=== PATIENT | male | born 1945 | race Caucasian/White ===

== ENCOUNTER → 2018-07-09 09:08 | Outpatient (CLI) | payer OTHER ==
--- NOTE | ~2018-07-09 | ST ---
PATIENT:VENU YATES MEDICAL RECORD: [id number] SEX: M LOCATION:[facility] ORDER #: ADMISSION DATE: 07/09/18 AGE OF PATIENT: 72 REFERRING PHYSICIAN: INTERPRETING PHYSICIAN: FIOR MERCADO MD DATE OF SERVICE: 07/09/2018 PROCEDURE: Nuclear stress test. INDICATION: Angina, coronary artery disease, shortness of breath, hypertension, and hyperlipidemia. DESCRIPTION: He was exercised on standard Lexiscan protocol with 27 mCi injected at peak stress, 9 mCi of sestamibi were injected previously for rest images. FINDINGS: Gated SPECT reveals a preserved ejection fraction of 59% with decreased thickening and brightening throughout the inferior segments. SPECT imaging: Cardiolite was used as myocardial fusion agent. There is a mixed perfusion defect inferiorly and apically. This is a partially fixed, partially reversible includes the basal, mid apical inferior segments as well as the apex itself. The remaining segments are with homogeneous uptake at rest and stress. OVERALL IMPRESSION: 1. This is an abnormal nuclear stress test with a mixed perfusion defect partially fixed, partially reversible throughout the inferior and apical segments. 2. Gated SPECT reveals preserved ejection fraction at 59%. In this patient with ongoing symptomatology, the current scan does suggest the presence of hemodynamically significant coronary artery disease. We will proceed with coronary angiography as followup study. TRANSINT:[id number] Voice Confirmation ID: [id number] DOCUMENT ID: [id number] FIOR MERCADO MD CC: [id number] DICTATION DATE: 07/10/18 1424 PAPER CONE MACHINE OPERATOR: 07/11/18 0131 DEP CLI 07/09/18 [facility] [address] [id number]
== END | disposition home or self-care (01) ==
LOC: D.HCCARDIO 09:08
DX: I25.10 Atherosclerotic heart disease of native coronary artery without angina pectoris (principal)

== ENCOUNTER 2018-07-24 08:59 | Outpatient (CLI) | payer OTHER ==
[~2018-07-24] VITALS: Ht 175.3 cm; Wt 113.6 kg
--- NOTE | ~2018-07-24 | HEMODYNAMI ---
PATIENT:VENU YATES MEDICAL RECORD: [id number] : 47 LOCATION:[facility] ADMISSION DATE: 07/24/18 Generatedon:07/24/201811:51 Patient name: VENU YATES Patient #: [id number] SSN: : 1945 Date of study: 07/24/2018 Page: Of Hemodynamic Procedure Report Patient Data Patient Demographics Procedure consent was obtained First Name: VENU Gender: Male Last Name: MILAN : 1945 Patient #: [id number] Age: 72 year(s) Race: Unknown Additional ID: [id number] Contact details [address]: [address] [place] [address] State: [place] City: [place] Zip code: [address] Admission Admission Data Admission Date: 07/24/2018 Admission Time: 8:59 Procedure Procedure Types Cath Procedure Diagnostic Procedure LHC LHC w/Coronaries w/Grafts Sedation Charges Moderate Sedation up to 15 minutes Procedure Description Procedure Date Procedure Date: 07/24/2018 Procedure Start Time: 11:37 Procedure End Time: 11:46 Procedure Staff Name Function Akin Doan MD Performing Physician Shira Heart RT Monitor Shaan Brand RT Scrub Rubén Peng RN Nurse Timothy Pham RN Ad Operations Specialist Procedure Data Cath Procedure Fluoroscopy Diagnostic fluoroscopy Total fluoroscopy Time: 3.6 time: 3.6 min min Diagnostic fluoroscopy Total fluoroscopy dose: 844 dose: 844 mGy mGy Contrast Material Contrast Material Type Amount (ml) Isovue 300 95 Entry Location Entry Primary Successful Side Size Upsize Upsize Entry Closure Succes sful Closure Location (Fr) 1 (Fr) 2 (Fr) Remarks Device Remarks Femoral Right 5 Fr Exoseal artery Estimated blood loss: 5 ml Diagnostic catheters Device Type Used For End Catheter Placement MULTIPACK Pigtail 5 Fr Multi-vessel catheter Angiography MULTIPACK JL 4.0 5Fr Left Coronary catheter Angiography MULTIPACK 3DRC 5Fr Multi-vessel catheter Angiography DIAGNOSTIC JL 5 5Fr Left Coronary catheter ([id number]) Angiography DIAGNOSTIC AR2 MOD 5 Fr Multi-vessel catheter ([id number]) Angiography Procedure Complications No complications Procedure Medications Medication Administration Route Dosage Oxygen etCO2 Nasal cannula 2 l/min Lidocaine 2% added to field 20 Heparin Flush Bag added to field 2 bags (1000units/500ml NS) 0.9% NaCl I.V. 100 ml/hr Versed I.V. 1 mg Fentanyl I.V. 50 mcg Versed I.V. 1 mg Fentanyl I.V. 50 mcg Versed I.V. 0.5 mg Fentanyl I.V. 25 mcg Hemodynamics Rest Heart Rate: 44 (bpm) Pressure Samples Time Site Value (mmHg) Purpose Heart Use Rate(bpm) 11:38 LV 91/35,46 Snapshot 46 Snapshots Pre Cath Intra NCS Post Cath Vital Signs Time Heart Resp SPO2 etCO2 NIBP (mmHg) Rhythm Pain Sedation Rate (ipm) (%) (mmHg) Status Level (bpm) 11:05:57 43 15 98 33.5 139/73(101) SB 0 (11) 10(A) , No pain 11:11:19 52 15 97 30 123/76(96) SB 0 (11) 10(A) , No pain 11:15:31 46 19 95 31.4 129/76(88) SB 0 (11) 10(A) , No pain 11:19:45 46 17 97 28.2 122/63(89) SB 0 (11) 10(A) , No pain 11:23:56 44 14 97 26.8 119/68(93) SB 0 (11) 10(A) , No pain 11:28:13 44 15 97 21.6 122/67(93) SB 0 (11) 10(A) , No pain 11:32:33 44 18 96 32.7 117/59(92) NSR 0 (11) 10(A) , No pain 11:37:36 45 15 97 24.6 143/77(122) NSR 0 (11) 9(A) , No pain 11:42:02 49 16 93 14.9 122/68(93) NSR 0 (11) 9(A) , No pain 11:46:18 56 16 95 24.6 138/76(111) NSR 0 (11) 10(A) , No pain 11:50:07 60 9 98 28.3 134/73(122) NSR 0 (11) 10(A) , No pain Medications Time Medication Route Dose Verified Delivered Reason Notes Eff ectiveness by by 11:03:09 Oxygen etCO2 2 Akin Edmondie used for Nasal l/min Franki Peng RN procedure cannula 11:03:15 Lidocaine 2% added 20ml Akin Akin for local to vial Franki Doan MD anesthetic field 11:03:20 Heparin Flush added 2 Akin Akin used for Bag to bags Franki Doan MD procedure (1000units/500ml field NS) 11:03:29 0.9% NaCl I.V. 100 Akin Pruittie Per ml/hr Franki Peng RN physician 11:36:06 Versed I.V. 1 mg Akin Pruittie for Franki Peng RN sedation 11:36:12 Fentanyl I.V. 50 Akin Pruittie for mcg Franki Peng RN sedation 11:40:16 Versed I.V. 1 mg Akin Pruittie for Franki Peng RN sedation 11:40:19 Fentanyl I.V. 50 Akin Pruittie for mcg Franki Peng RN sedation 11:44:28 Versed I.V. 0.5 Akin Pruittie for mg Franki Peng RN sedation 11:44:32 Fentanyl I.V. 25 Akin Pruittie for mcg Franki Peng RN sedation Procedure Log Time Note 10:40:25 Rubén Peng RN sent for patient. Start room use. 10:57:13 Time tracking: Regular hours (M-F 7:00 - 5:00) 10:57:17 Plan of Care:Hemodynamics will remain stable., Cardiac rhythm will remain stable., Comfort level will be maintained., Respiratory function will remain adequate., Patient/ family verbilizes understanding of procedure., Procedure tolerated without complication., Recovers from procedure without complications.. 10:57:25 Patient received from Pre/Post Procedure Room to [facility] 2 Alert and oriented. Tansferred to table in Supine position. 10:57:26 Warm blankets applied, and teddy hugger turned on for patient comfort. 10:57:26 Correct patient and procedure confirmed by team. 10:57:27 Signed procedure consent form obtained from patient. 10:57:28 ECG and BP/O2 sat monitors applied to patient. 11:03:09 Oxygen 2 l/min etCO2 Nasal cannula was administered by Buffie Peng RN; used for procedure; 11:03:15 Lidocaine 2% 20ml vial added to field was administered by Akin Doan MD; for local anesthetic; 11:03:20 Heparin Flush Bag (1000units/500ml NS) 2 bags added to field was administered by Akin Doan MD; used for procedure; 11:03:29 0.9% NaCl 100 ml/hr I.V. was administered by Rubén Peng RN; Per physician; 11:03:32 Vital chart was started 11:05:47 Baseline sample Acquired. 11:05:57 Rhythm: sinus bradycardia 11:05:58 Full Disclosure recording started 11:06:02 H&P Date Dictated: 07/24/2018 Within 30 days and on chart., H&P Addendum completed by physician on day of procedure. (MUST COMPLETE FOR ALL OUTPATIENTS). 11:06:03 Pre-procedure instructions explained to patient. 11:06:04 Pre-op teaching completed and patient verbalized understanding. 11:06:05 Family in waiting room. 11:06:08 Patient NPO since Midnight. 11:06:10 Is the patient allergic to Iodine/contrast media? No. 11:06:11 Was the patient premedicated? No 11:06:17 Is patient on blood thinner?Yes 11:06:19 ACC The patient was administered the following blood thiners within the last 24 hours: ACCPlavix 11:06:22 Patient diabetic? Yes. 11:06:23 If diabetic: On Metformin? Yes 11:06:26 If on Metformin: Last Dose? 07/22/2018 11:06:29 Previous problem with sedation/anesthesia? No ? 11:06:30 Snore? Yes 11:06:31 Sleep apnea? Yes 11:06:32 Deviated septum? No 11:06:43 Opens mouth fully? Yes 11:06:44 Sticks out tongue? Yes 11:06:46 Airway obstruction? No ? 11:06:48 Dentures? No ? 11:06:55 Pre procedure: right dorsailis pedis pulse 2+ Normal; easily identifiable; not easily obliterated 11:07:00 Pre procedure: left dorsailis pedis pulse 2+ Normal; easily identifiable; not easily obliterated 11:07:03 Patient pain scale 0/10 ?. 11:07:11 IV patent on arrival in left antecubital with 0.9% NaCl at [facility]. 11:07:13 Lab results completed and on chart. 11:07:17 Right groin area was prepped with chlora-prep and draped in sterile fashion 11:07:18 Alarms reviewed by R. N. 11:07:19 Sharps counted by scrub and verified by RMarlynN. 11:35:10 Physician arrived 11:35:11 --------ALL STOP TIME OUT------ 11:35:11 Final Timeout: patient, procedure, and site verified with staff and physician. All members of the team are in agreement. 11:35:15 Right groin site verified by team. 11:35:18 Physical assessment completed. ASA score P 2 - A patient with mild systemic disease as per Akin Doan MD. 11:35:21 Sedation plan: IV Moderate Sedation Medication:Versed, Fentanyl 11:35:28 Use device set Femoral Dx 11:35:29 ACIST Syringe (86275) opened to sterile field. 11:35:29 Bag Decanter (2002S) opened to sterile field. 11:35:29 Medline Cath Pack ([id number]) opened to sterile field. 11:35:30 DIAGNOSTIC WIRE .035 260cm J wire (167900) opened to sterile field. 11:35:32 ACIST Hand Control (48228) opened to sterile field. 11:35:32 ACIST Manifold (80613) opened to sterile field. 11:35:33 DIAGNOSTIC Multipack 5Fr catheter set ([id number]) opened to sterile field. 11:35:33 Tegaderm 4 x 4 (1626W) opened to sterile field. 11:35:34 SHEATH 5FR Fessenden (FFR377) opened to sterile field. 11:35:48 Procedure started. 11:36:06 Versed 1 mg I.V. was administered by Rubén Peng RN; for sedation; 11:36:12 Fentanyl 50 mcg I.V. was administered by Rubén Peng RN; for sedation; 11:37:14 Local anesthetic to right femoral artery with Lidocaine 2% by Akin Doan MD.INITIAL ACCESS ONLY 11:37:23 A 5 Fr sheath was inserted into the Right Femoral artery 11:37:56 A MULTIPACK Pigtail 5 Fr catheter was advanced over the wire and used for Multi-vessel Angiography. 11:38:25 LV hemodynamics recorded. 11:38:26 LV gram done using CR 11:38:29 Injector settings: Ml/sec: 5, Volume: 15, 11:38:38 EF : 40 % 11:38:41 Catheter removed. 11:38:45 A MULTIPACK JL 4.0 5Fr catheter was advanced over the wire and used for Left Coronary Angiography. 11:39:24 Guide Catheter removed. unable to cannulate vessel. 11:40:07 A MULTIPACK 3DRC 5Fr catheter was advanced over the wire and used for Multi-vessel Angiography. 11:40:16 Versed 1 mg I.V. was administered by Rubén Peng RN; for sedation; 11:40:19 Fentanyl 50 mcg I.V. was administered by Rubén Peng RN; for sedation; 11:41:05 SOUTH angiography performed. 11:41:37 Catheter removed. 11:42:09 A DIAGNOSTIC JL 5 5Fr catheter ([id number]) was advanced over the wire and used for Left Coronary Angiography. 11:42:52 LCA angiography performed. 11:42:55 Injector settings: Ml/sec: 3, Volume: 6, 11:43:36 Catheter removed. 11:44:12 A DIAGNOSTIC AR2 MOD 5 Fr catheter (314781H) was advanced over the wire and used for Multi-vessel Angiography. 11:44:23 SVG to RCA angiography performed. 11:44:28 Versed 0.5 mg I.V. was administered by Rubén Peng RN; for sedation; 11:44:32 Fentanyl 25 mcg I.V. was administered by Rubén Peng RN; for sedation; 11:45:01 SVG to Circ angiography performed. 11:45:15 EXOSEAL 5Fr (EX500) opened to sterile field. 11:45:18 Catheter removed. 11:45:28 Sheath removed intact; hemostasis achieved with Exoseal to the Right Femoral artery. 11:45:32 Procedure ended.(Physican Out) 11:46:00 Fluoroscopy time 03.60 minutes. 11:46:15 Flurop Dose total: 844 11:46:15 Fluoroscopy dose: 844 mGy 11:46:18 Contrast amount:Isovue 300 95ml. 11:46:20 Sharps counted by scrub and verified by R.N. 11:46:23 Insertion/operative site no bleeding no hematoma. 11:46:25 Post-op/insertion site Right Femoral artery dressed using a 4 x 4 and Tegaderm. 11:46:27 Post right femoral artery:stable 11:46:29 Post Procedure Pulses reassessed and unchanged 11:46:31 Post procedure rhythm: unchanged. 11:46:34 Estimated blood loss: 5 ml 11:46:36 Post procedure instruction explained to patient.Patient verbalizes understanding. 11:46:36 Patient needs reinforcement of post procedure teaching. 11:46:43 Procedure type changed to Cath procedure, Diagnostic procedure, LHC, LHC w/Coronaries w/Grafts, Sedation Charges, Moderate Sedation up to 15 minutes 11:46:44 Procedure and supply charges have been captured, reviewed, submitted and are correct. 11:46:48 Procedure Complication : No complications 11:46:51 Vital chart was stopped 11:46:51 See physician's report for complete and final results. 11:46:53 Report given to Pre/Post Procedure Room. 11:46:56 Patient transfered to Pre/Post Procedure Room with Stretcher. 11:46:58 Procedure ended. 11:46:58 Full Disclosure recording stopped 11:47:01 End room use (Document Last) Device Usage Item Name Manufacture Quantity Catalog Hospital Part Current Minimal L ot# / Number Charge Number Stock Stock Serial# Code ACIST Acist 1 20123 485057 164461 214732 20 Syringe Medical (62655) Systems Inc Bag Microtek 1 481099 43084 484848 5 Decanter Medical Inc. () Medline Medline 1 [id number] 590889 28101 886505 5 Cath Pack ([id number]) DIAGNOSTIC [facility] [place] 1 543103 822095 536853 943146 30 WIRE .035 260cm J wire (023508) ACIST Hand Acist 1 10493 488333 936198 193049 5 Control Medical (27085) Systems Inc ACIST Acist 1 67758 070917 476146 350442 5 Manifold Medical (49838) Systems Inc DIAGNOSTIC Cardinal 1 HO0157 809671 37292 788737 30 Decohunt 5Fr catheter set ([id number]) Tegaderm 4 3M 1 1626W 959541 036437 196411 5 x 4 (1626W) SHEATH 5FR Terumo 1 OCR251 350822 943684 116155 5 Fessenden (JIG840) MULTIPACK Cardinal 1 003231 5 Pigtail 5 Health Fr catheter MULTIPACK Cardinal 1 223602 5 JL 4.0 5Fr Health catheter MULTIPACK Cardinal 1 537043 5 3DRC 5Fr Health catheter DIAGNOSTIC Cardinal 1 [id number] 451318 047347 533234 5 JL 5 5Fr Health catheter (269445K) DIAGNOSTIC Cardinal 1 [id number] 253324 525097 703553 20 AR2 MOD 5 Health Fr catheter (962354P) EXOSEAL 5Fr Cardinal 1 EX500 629531 992953 439642 10 (EX500) Health Signature Audit [place] Stage Time Signature Unsigned Intra-Procedure 07/24/2018 Shira Heart 11:51:03 AM RT(R) Signatures Monitor : Shira Heart RT Signature : Date : Time : [address] [address]
[2018-07-24] MEDS ORDERED: NORVASC5 MG PO (09:34)
[2018-07-24] MEDS ORDERED: PLAVIX75 MG PO (09:34)
[2018-07-24] MEDS ORDERED: SYNTHROID175 MCG PO (09:35)
[2018-07-24] MEDS ORDERED: GLUCOPHAGE500 MG PO (09:36)
[2018-07-24] MEDS ORDERED: NEURONTIN 300300 MG PO (09:36)
[2018-07-24] MEDS ORDERED: OMEPRAZOLE20 M1 PO (09:36)
[2018-07-24] MEDS ORDERED: LIPITOR40 MG PO (09:37)
[2018-07-24] MEDS ORDERED: BAYER ASPIRIN325 MG PO (09:38)
[2018-07-24] MEDS ORDERED: LOPRESSOR25 MG PO (09:38)
[2018-07-24] MEDS ORDERED: MAG-OXIDE400 MG PO (09:39)
[2018-07-24] MEDS ORDERED: MELATONIN 3 MG1 TAB PO (09:40)
[2018-07-24 09:44] LABS: BASOPHILS 0.5 % (0-2); EOSINOPHILS 2.7 % (0-7); HEMATOCRIT 43.9 % (42.0-54.0); HEMOGLOBIN 15.2 g/dL (13.5-17.5); IMMATURE GRANULOCYTES 0.3 % (0-5); LYMPHOCYTES 21.2 % (15-50); MCH 30.3 pg (26.0-34.0); MCHC 34.6 g/dL (31.0-37.0); MCV 87.6 fL (80.0-100.0); MONOCYTES 15.3 % (2-11); PLATELET COUNT 145 10x3/uL (130-400); RBC 5.01 10x6/uL (4.20-6.10); RDW 13.7 % (11.5-14.5); WBC 6.6 10x3/uL (4.8-10.8)
[2018-07-24 09:49] VITALS: BP 134/73; Ht 175.3 cm; Wt 113.6 kg
[2018-07-24 09:58] LABS: ANION GAP 14.1 mmol/L (8-16); CALCIUM 8.7 mg/dL (8.5-10.1); CARBON DIOXIDE 27.3 mmol/L (21.0-32.0); CREATININE - SERUM 1.2 mg/dL (0.6-1.3); POTASSIUM - SERUM 4.4 mmol/L (3.5-5.1)
--- NOTE | 2018-07-24 12:00 | NUR ---
RECIEVED TO ROOM VIA STRETCHER FROM ENTRY TECH WITH 5 FR EXOSEAL R/GROIN CDI NO BLEEDING OR HEMATOMA NOTED. PATIENT CONNECTED TO MONITOR FOR OBSERVATION WITH HR 64 BP 124/72 CHEST PAIN IS DENIED
--- NOTE | 2018-07-24 12:19 | NUR ---
RESTING QUIETLY WITH EYES CLOSED. VSS RESPIRATIONS ARE EVEN AND UNLABORED. 5 FR EXOSEAL R/GROIN IS CDI WITH R/FOOT WARM TO TOUCH
--- NOTE | 2018-07-24 12:45 | NUR ---
5 FR EXOSEAL R/GROIN IS CDI WITH VSS PATIENT RESTING QUIETLY WITH EYES CLOSED NO DISTRESS NOTED
--- NOTE | 2018-07-24 13:13 | NUR ---
PATIENT CONTINUES TO SLEEP WITH EYES CLOSED. R/GROIN REMAINS CDI WITH R/FOOT WARM TO TOUCH AND PULSES PALPABLE
--- NOTE | 2018-07-24 13:49 | NUR ---
REPOSITIONED TO SITTING WITH HOB UP 3 FOR COMFORT. 5 FR EXOSEAL R/GROIN REMAINS CDI WITH NO BLEEDING OR HEMATOMA NOTED. SANDWICH AND SODA TO BEDSIDE
--- NOTE | 2018-07-24 14:00 | NUR ---
PIV REMOVED WITH DRESSING APPLIED. 5 FR EXOSEAL R/GROIN REMAINS CDI PATIENT UP TO GET DRESSED FOR DISCHARGE HOME
--- NOTE | 2018-07-24 14:19 | NUR ---
VERBAL AND WRITTEN DISCHARGE GONE OVER WITH PATIENT AND BOTH VERBALIZED UNDERSTANDING. 5 FR EXOSEAL R/GROIN REMAINS CDI WITH CHEST PAIN DENIED. PATIENT LEFT VIA WC TO PARKING FOR TRANSPORT HOME NO DISTRESS
--- NOTE | 2018-08-04 13:29 | OP ---
PATIENT NAME: VENU YATES MEDICAL RECORD: [id number] :47 LOCATION:[facility] ADMISSION DATE: SURGEON: FIOR MERCADO MD DATE OF OPERATION: 07/24/2018 PROCEDURES: 1. Left heart catheterization. 2. Selective coronary angiography. 3. Vein graft angiography. 4. SOUTH angiography. INDICATION: Shortness of breath, angina, and coronary artery disease. PROCEDURE IN DETAIL: After informed consent was obtained and after a detailed description of risks, benefits as well as alternative therapies, the patient elected to proceed with angiogram and heart catheterization. The right femoral area was prepped and draped in normal sterile fashion. Right femoral artery was cannulated via modified Seldinger technique with placement of 6-Yoruba sheath. All catheters exchanged through this sheath. FINDINGS: The left ventriculogram was performed in standard 30-degree CR view, reveals global hypokinesis throughout all segments. Overall ejection fraction estimated at 40%. SELECTIVE CORONARY ANGIOGRAPHY: 1. Left main has no significant angiographic disease. 2. Left anterior descending has 90% stenosis proximally. 3. SOUTH to the LAD is widely patent. Distal LAD is widely patent. 4. Left circumflex has a totally occluded first obtuse marginal. 5. Vein graft to the obtuse marginal is widely patent. Distal obtuse marginal is widely patent. 6. The right coronary artery is totally occluded. 7. Vein graft to the right coronary artery is widely patent. OVERALL IMPRESSION: Wide patency of all his vein grafts with no new disease that is of significance. Mild cardiomyopathy, ejection fraction 40%. Continue medical management of the coronary artery disease and cardiac risk factors. TRANSINT:[id number] Voice Confirmation ID: [id number] DOCUMENT ID: [id number] FIOR MERCADO MD at 1329 CC: [id number] DICTATION DATE: 07/24/18 1150 BRICK SETTER OPERATOR: 07/24/18 1223 DEP CLI 07/24/[address] [address]
== END 2018-07-24 14:22 | disposition home or self-care (01) ==
LOC: D.CATH 08:59
PROVIDERS: Internal Medicine Interventional Cardiology
DX: I25.119 Atherosclerotic heart disease of native coronary artery with unspecified angina pectoris (principal); R94.30 Abnormal result of cardiovascular function study, unspecified; I42.9 Cardiomyopathy, unspecified

== ENCOUNTER 2019-05-18 14:33 | Emergency (ER) | payer MEDICARE ==
[~2019-05-18 14:33] MED LIST: BAYER ASPIRIN325 MG PO; GLUCOPHAGE500 MG PO; LIPITOR40 MG PO; LOPRESSOR25 MG PO; MAG-OXIDE400 MG PO; MELATONIN 3 MG1 TAB PO; NEURONTIN 300300 MG PO; NORVASC5 MG PO; OMEPRAZOLE20 M1 PO; PLAVIX75 MG PO; SYNTHROID175 MCG PO
[2019-05-18 14:45] VITALS: Ht 175.3 cm
[2019-05-18] MEDS ORDERED: PEPCID40 MG PO (14:47)
[2019-05-18 15:04] LABS: BASOPHILS 0.3 % (0-2); HEMATOCRIT 43.2 % (42.0-54.0); HEMOGLOBIN 14.3 g/dL (13.5-17.5); IMMATURE GRANULOCYTES 0.2 % (0-5); LYMPHOCYTES 31.2 % (15-50); MCH 29.4 pg (26.0-34.0); MCHC 33.1 g/dL (31.0-37.0); MCV 88.9 fL (80.0-100.0); MEAN PLATELET VOLUME 9.5 fL (7.4-10.4); MONOCYTES 12.2 % (2-11); NEUTROPHILS 53.1 % (40-80); PLATELET COUNT 155 10x3/uL (130-400); RBC 4.86 10x6/uL (4.20-6.10)
[2019-05-18 15:13] LABS: INR 1.1 (0.85-1.17); PROTIME 13.7 SECONDS (11.6-15.0)
[2019-05-18 15:14] LABS: APTT 31.4 SECONDS (22.8-39.4)
[2019-05-18 15:17] LABS: CALC OSMOLALITY 280 mosm/kg (275-300); CALCIUM 8.7 mg/dL (8.5-10.1); CARBON DIOXIDE 31.1 mmol/L (21.0-32.0); CHLORIDE - SERUM 101 mmol/L (98-107); CREATININE - SERUM 1.3 mg/dL (0.6-1.3); GLUCOSE 137 mg/dL (74-106); POTASSIUM - SERUM 4.1 mmol/L (3.5-5.1); SODIUM 138 mmol/L (136-145); UREA NITROGEN 20 mg/dL (7-18); eGFR NON AFRICAN AMERICAN 58 mL/min (90-120)
[2019-05-18 15:32] LABS: ALBUMIN 3.9 g/dL (3.4-5.0); ALKALINE PHOSPHATASE 73 U/L (46-116); ALT (SGPT) 40 U/L (10-68); AMYLASE - SERUM 70 U/L (25-115); BILIRUBIN - TOTAL 0.61 mg/dL (0.2-1.3); CKMB 1.9 U/L (0.0-3.6); CREATINE KINASE 78 UL (21-232); LIPASE 202 U/L (73-393); MAGNESIUM - SERUM 2.2 mg/dL (1.8-2.4); PROTEIN - SERUM 7.5 g/dL (6.4-8.2); TROPONIN-I < 0.017 ng/mL (0.000-0.060)
[2019-05-18 18:32] LABS: CKMB 1.7 U/L (0.0-3.6); CREATINE KINASE 75 UL (21-232)
[2019-05-18 18:33] LABS: TROPONIN-I < 0.017 ng/mL (0.000-0.060)
[2019-05-18] MEDS ORDERED: OMEPRAZOLE40 MG PO (18:47)
[2019-05-18 18:55] VITALS: BP 136/62
== END 2019-05-18 19:14 | disposition home or self-care (01) ==
LOC: D.ER 14:33
PROVIDERS: Family Medicine; Internal Medicine Interventional Cardiology
DX: K21.9 Gastro-esophageal reflux disease without esophagitis (principal); E11.9 Type 2 diabetes mellitus without complications; I25.10 Atherosclerotic heart disease of native coronary artery without angina pectoris; I10 Essential (primary) hypertension

== ENCOUNTER → 2019-05-31 12:16 | Outpatient (CLI) | payer MEDICARE ==
[~2019-05-31 12:16] MED LIST changes: +OMEPRAZOLE40 MG PO; +PEPCID40 MG PO
--- NOTE | 2019-06-02 10:41 | EC ---
PATIENT:NIK YATES II DATE OF SERVICE: 05/31/19 SEX: M MEDICAL RECORD: [id number] DATE OF : [birth year] LOCATION:[facility] AGE OF PATIENT: 73 ADMISSION DATE: 05/31/19 REFERRING PHYSICIAN: INTERPRETING PHYSICIAN: FIOR DOAN MD ECHOCARDIOGRAM REPORT ECHO CHARGES 4 ECHO COMPLETE Date: 05/31/19 CLINICAL DIAGNOSIS: BRADYCARDIA/CARDIOMYOPATHY/ PEREZ/FATIGUE H/O CAD/CABG/HTN ECHOCARDIOGRAPHIC MEASUREMENTS (adult normal given) AC root (d.<3.7cm) 4.3 cm LV Septum d (<1.2 cm> 1.1 cm Valve Excursion 2.4 cm LV Septum (systole) 1.4 cm Left Atria (s.<4.0cm> 4.4 cm LVPW d(<1.2cm) 1.0 cm RV (d.<2.3cm) 2.7 cm LVPW (sytole) 2.0 cm LV diastole(<5.6CM) 6.0 cm MV E-F(>70mm/sec) cm LV systole 3.5 cm LVOT Diameter 2.2 cm MV exc.(>10mm) cm Est.ejection fraction (50-75%) % DOPPLER: LVIT cm/sec A cm/sec E 86.0 cm/sec LA cm/sec RVSP 32.3 mmHg LVOT 100 cm/sec AOP1/2T m/s Asc. Ao 127 cm/sec RVOT 50.0 cm/sec RA cm/sec PA 100 cm/sec AV Gradient Peak 6.4 mmHg AV Mean 3.1 mmHg AV Area 3.2 cm MV Gradient Peak 3.3 mmHg MV Mean 1.0 mmHg MV Area cm COMMENTS: OP - [facility] [employer] Floorperson: 1 DAIJA [employer] Founder: 1 Dr. Doan TAPE# PACS Pericardial Effusion N DATE OF SERVICE: FINDINGS: 1. Left ventricular chamber size is mildly dilated. Left ventricular systolic function is mildly depressed at 45% to 50%. 2. Left atrium is enlarged at 4.4 cm. Right atrium and right ventricular chamber sizes are as well mildly dilated. 3. Valvular structures have normal structure and motion. 4. Doppler interrogation reveals eyei-gk-buwuxrhq aortic insufficiency, mild ECHOCARDIOGRAM REPORT [id number] NIK YATES II mitral regurgitation, mild tricuspid regurgitation. No other valvular insufficiency or stenosis. Pulmonary systolic pressure estimated at 32 mmHg. 5. No evidence of pericardial effusion or left ventricular thrombus. TRANSINT:[id number] Voice Confirmation ID: [id number] DOCUMENT ID: [id number] FIOR DOAN MD at 1041 CC: [id number] DICTATION DATE: 05/31/19 1635 RESPIRATORY PRACTITIONER: 05/31/19 1906 DEP CLI 05/31/19 [facility] [address] [place] [address]
== END | disposition home or self-care (01) ==
LOC: D.HCCECHO 05-28 13:00
PROVIDERS: ATTEND Internal Medicine Interventional Cardiology
DX: I25.10 Atherosclerotic heart disease of native coronary artery without angina pectoris (principal)

== ENCOUNTER → 2021-01-08 09:48 | Outpatient (CLI) | payer MEDICARE ==
[2020-07-06 07:31] VITALS: BMI 35.5
[~2021-01-08 09:48] MED LIST changes: +ACETAMINOPHEN500 M1 PO; +ADVIL200 MG PO; +GABAPENTIN300 MG PO; +HYDROCODON-ACE1 EA10 PO; +LIPITOR20 MG PO
== END | disposition home or self-care (01) ==
LOC: D.HCCECHO 09:48
PROVIDERS: ATTEND Internal Medicine Cardiovascular Disease
DX: I42.9 Cardiomyopathy, unspecified (principal)